=== PATIENT | male | born 1970 | race Caucasian/White ===

== ENCOUNTER 2023-04-06 06:36 | Day surgery (SDC) | payer OTHER ==
[2023-04-04 16:11] VITALS: BMI 27.4
[2023-04-06] MEDS ORDERED: Dexamethasone 20 MG/5 ML VIAL ONE (08:06)
[2023-04-06] MEDS ORDERED: Dexmedetomidine 200 MCG/2 ML VIAL ONE (08:06)
[2023-04-06] MEDS ORDERED: Midazolam HCl 2 mg/2 ml Vial ONE (08:06)
[2023-04-06] MEDS ORDERED: PROPOFOL 20 ML ONE ×2 (08:06→09:42)
[2023-04-06] MEDS ORDERED: Rocuronium Bromide 10 MG/ML (10ML VIAL) ONE (08:06)
[2023-04-06] MEDS ORDERED: SUGAMMADEX SODIUM 200 MG/2 ML VIAL ONE (08:06)
[2023-04-06] MEDS ORDERED: fentaNYL 50 mcg/mL 1 mL Vial ONE ×2 (08:06→08:07)
[2023-04-06] MEDS ORDERED: Ondansetron PF 4 MG/2 ML Vial ONE (08:06)
[2023-04-06] MEDS ORDERED: Lidocaine 4% Topical Sol 50 ML BOT ONE (08:06)
[2023-04-06] MEDS ORDERED: EPINEPHrine 1 MG/ML AMP ONE (08:07)
[2023-04-06] MEDS ORDERED: CEFAZOLIN 2 GM VIAL ONE (08:26)
[2023-04-06] MEDS ORDERED: Mupirocin 2% Ointment 22 GM Tube ONE (08:50)
[2023-04-06] MEDS ORDERED: PHENYLEPHRINE-NS 100 MCG/ML 10 ML SYRINGE ONE (08:56)
[2023-04-06] MEDS ORDERED: ePHEDrine Sulfate 50 MG/10 ML VIAL ONE (09:58)
[2023-04-06] MEDS ORDERED: Glycopyrrolate 0.2 MG/ML 5 ML SYRINGE ONE (10:00)
[2023-04-06] MEDS ORDERED: HYDROcodone/Acetaminophen 5/325 mg Tablet ONE (12:01)
== END 2023-04-06 12:30 | disposition home or self-care (01) ==
LOC: CSHSDC 06:36
PROVIDERS: ATTEND Otolaryngology Plastic Surgery within the Head & Neck
PROC: 09U Ear, Nose, Sinus, Supplement (ICD-10-PCS; principal; 2023-04-06)
DX: H90.42 Sensorineural hearing loss, unilateral, left ear, with unrestricted hearing on the contralateral side (principal); H80.92 Unspecified otosclerosis, left ear; I10 Essential (primary) hypertension
CPT/HCPCS: 69930; 70250; J3010; L8614 ×2; Q9968; J0171; J1100; J1642; J2250; J2405; J2704